=== PATIENT | male | born 1985 | race Caucasian/White ===

== ENCOUNTER 2016-10-31 20:45 | Emergency (ER) | payer MEDICAID ==
[2016-10-31 20:58] VITALS: BP 148/85
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
--- NOTE | 2016-11-01 15:45 | CR ---
Right hand: Four views of the right hand were obtained. Comparison: No previous study. Study slightly limited as fingers are held in flexion. Joint spaces appear preserved. No fracture, dislocation or other bony abnormality is seen. Impression: 1. Evaluation slightly limited due to fingers held in flexion. 2. No definite acute bony abnormality is appreciated. Diagnostic code #2
== END 2016-10-31 22:20 | disposition home or self-care (01) ==
LOC: JD.ED 20:45
DX: S63.418A Traumatic rupture of collateral ligament of other finger at metacarpophalangeal and interphalangeal joint, initial encounter (principal); X58.XXXA Exposure to other specified factors, initial encounter
CPT/HCPCS: 29125; 73130-26-RT; 73130-RT; 99283; 99284-25

== ENCOUNTER 2016-11-01 14:45 | Emergency (ER) | payer MEDICAID ==
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
[2016-11-01 15:47] VITALS: BP 123/85
== END 2016-11-01 15:45 | disposition home or self-care (01) ==
LOC: SUPCPDRO 14:45 → JD.ED 14:45
DX: S63.418A Traumatic rupture of collateral ligament of other finger at metacarpophalangeal and interphalangeal joint, initial encounter (principal); F17.210 Nicotine dependence, cigarettes, uncomplicated; Y93.67 Activity, basketball
CPT/HCPCS: 99283